=== PATIENT | female | born 1955 | race Hispanic/Latino ===

== ENCOUNTER → 2019-11-17 | Outpatient (CLI) | payer MEDICARE | END | disposition home or self-care (01) | LOC: RAH 13:58 | PROVIDERS: ATTEND Internal Medicine | DX: Z12.31 Encounter for screening mammogram for malignant neoplasm of breast (principal); Z76.89 Persons encountering health services in other specified circumstances | CPT/HCPCS: 77067 ==

== ENCOUNTER → 2020-09-10 | Outpatient (CLI) | payer MEDICARE ==
[~2020-09-10] MED LIST: REGADENOSON 0.4 MG/5 ML PF SYG IVP SCH
== END | disposition home or self-care (01) ==
LOC: RAH 09:03
PROVIDERS: ATTEND Internal Medicine
DX: R00.1 Bradycardia, unspecified (principal); R07.9 Chest pain, unspecified
CPT/HCPCS: 78452; 93017; 96374; A9500 ×2; J2785

== ENCOUNTER → 2021-05-05 | Outpatient (CLI) | payer MEDICARE | END | disposition home or self-care (01) | LOC: RAH 11:43 | PROVIDERS: ATTEND Otolaryngology Plastic Surgery within the Head & Neck | DX: R22.1 Localized swelling, mass and lump, neck (principal); E04.1 Nontoxic single thyroid nodule | CPT/HCPCS: 76536 ==

== ENCOUNTER 2024-02-15 08:49 | Emergency (ER) | payer OTHER ==
[~2024-02-15] VITALS: Ht 157.5 cm; Wt 63.0 kg
[2024-02-15 08:50] VITALS: BP 165/82; PULSE 101; RESP 18
[2024-02-15] MEDS ORDERED: MENT250L TP (10:23)
[2024-02-15] MEDS ORDERED: FAMO40TA75 PO (10:23)
[2024-02-15] MEDS ORDERED: [UNRECOGNIZED DRUG - CODE] TP (10:23)
[2024-02-15] MEDS ORDERED: CETI10TA57 PO (10:23)
[2024-02-15] MEDS ORDERED: HYDR-3830 PO (10:24)
== END 2024-02-15 10:36 | disposition home or self-care (01) ==
LOC: EDH 08:49
DX: L29.9 Pruritus, unspecified (principal); K29.70 Gastritis, unspecified, without bleeding; I10 Essential (primary) hypertension

== ENCOUNTER → 2025-03-18 | Outpatient (CLI) | payer OTHER ==
[~2025-03-18] MED LIST changes: +CETI10TA57 PO; +FAMO40TA75 PO; +HYDR-3830 PO; +MENT250L TP; -REGADENOSON 0.4 MG/5 ML PF SYG IVP SCH; +[UNRECOGNIZED DRUG - CODE] TP
--- NOTE | 2025-03-19 10:39 | HMCIMG ---
MAMMO SCREENING BILATERAL HISTORY: Screening mammogram. COMPARISON: 01/22/2024 TECHNIQUE: Bilateral screening mammogram with CAD was performed with craniocaudal and mediolateral oblique projections. FINDINGS: There are scattered areas of fibroglandular density. There is no evidence of a dominant mass, or suspicious microcalcification. There is no evidence of nipple retraction or skin thickening. IMPRESSION: 1. Stable mammogram. Patient was entered into a reminder system with a target due date for their next mammogram. BI-RADS: CATEGORY 2: BENIGN FINDINGS Recommend monthly self breast exam as well as annual clinical examination. A negative x-ray should not delay biopsy if a dominant or clinically suspicious mass is present, since 8-10% of cancers are not identified by mammography. Dense breasts particularly, may obscure an underlying neoplasm. Some of these may be detected clinically and therefore, clinical examination is an essential part of breast evaluation.
== END | disposition home or self-care (01) ==
LOC: RAH 13:30
PROVIDERS: ATTEND Internal Medicine
DX: Z12.31 Encounter for screening mammogram for malignant neoplasm of breast (principal); R92.323 Mammographic fibroglandular density, bilateral breasts
CPT/HCPCS: 77067